=== PATIENT | female | born 1955 | race Caucasian/White ===

== ENCOUNTER 2019-12-12 18:15 | Emergency (ER) | payer OTHER ==
[2019-12-12] MEDS ORDERED: fentaNYL 100 MCG/2 ML SDV ONE ×2 (18:26→19:47)
[2019-12-12] MEDS ORDERED: Midazolam 1 MG/ML 2 ML SDV ONE ×2 (18:26→19:48)
--- NOTE | 2019-12-12 18:58 | EDM.PDOC ---
ED HPI GENERAL MEDICAL PROBLEM - General Chief Complaint: General Stated Complaint: RAPID HEART RATE Time Seen by Provider: 12/12/19 18:40 - History of Present Illness INITIAL COMMENTS - FREE TEXT/NARRATIVE: Patient presents with palpitations tachycardia for 1 hour prior to arrival. Patient presents with A. fib RVR. Patient is diaphoretic pale but alert and orientated x4. Patient is on Xarelto for DVTs. She also takes metoprolol for high blood pressure no other medical problems. Patient denies any recreational drug use. Denies any history of arrhythmia. - Related Data Allergies Allergy/AdvReac Type Severity Reaction Status Date / Time doxycycline Allergy Hives Verified 12/12/19 19:00 lisinopril Allergy Cough Verified 12/12/19 19:00 naproxen sodium [From Aleve] Allergy Rash Verified 12/12/19 19:00 propoxyphene HCl Allergy Hallucinati Verified 12/12/19 19:00 [From Darvon] ons Home Meds: Home Meds DULoxetine [Cymbalta] 60 mg PO DAILY 04/26/15 [History] Omeprazole [Prilosec] 20 mg PO ACBREAKFAST 04/26/15 [History] Diclofenac Sodium [Voltaren] 50 mg PO BIDMEALS 05/02/15 [History] Cyanocobalamin (Vitamin B-12) [Cyanocobalamin Injection] 1,000 mcg IM Q30D 03/04/16 [History] Fluticasone Propionate [Flonase] 1 spray NASBOTH BID 03/04/16 [History] Multivitamin [Multivitamins] 1 cap PO DAILY 03/04/16 [History] Albuterol [Proventil HFA] 1 - 2 puff INH Q4H PRN 03/08/16 [History] Calcium Carb/Magnesium Hydrox [Rolaids Chewable Tablet] 1 each PO QID PRN 03/08/16 [History] Ibuprofen 800 mg PO BID PRN 03/08/16 [History] Rup Rub 1 applic TOP TID PRN 03/08/16 [History] Benzonatate [Tessalon Perles] 200 mg PO BID #30 cap 03/10/16 [Rx] Budesonide [Pulmicort] 0.5 mg IH BID #30 ml 03/10/16 [Rx] Levofloxacin [Levaquin] 500 mg PO Q24H #5 tablet 03/10/16 [Rx] Past Medical History HEENT History: Reports: Impaired Vision Cardiovascular History: Reports: High Cholesterol, Hypertension, Other (See Below) Other Cardiovascular History: dysrythmic disorder Respiratory History: Reports: COPD, Other (See Below) Other Respiratory History: hx of influenza B May 2015; current pneumonitis 03/2016 Gastrointestinal History: Reports: GERD Genitourinary History: Reports: None [employer] WORKERS History: Reports: Musculoskeletal History: Reports: Osteoarthritis Psychiatric History: Reports: Anxiety Endocrine/Metabolic History: Reports: Vitamin D Deficiency Hematologic History: Reports: B12 Deficiency Oncologic (Cancer) History: Reports: Breast - Infectious Disease History Infectious Disease History: Reports: Chicken Pox - Past Surgical History Female Surgical History: Reports: Hysterectomy, Salpingo-Oophorectomy Social & Family History - Family History Cardiac: Reports: Bypass, CAD, Prior Cardiac Arrest Neurological: Reports: CVA Other Neurological Family History: mother had stroke Other Oncologic Family History: sister and brother from cancer - Caffeine Use Caffeine Use: Reports: Coffee, Soda ED ROS GENERAL - Review of Systems Review Of Systems: Comprehensive ROS is negative, except as noted in HPI. Cardiovascular: Reports: Lightheadedness, Palpitations ED EXAM, GENERAL - Physical Exam Exam: See Below Exam Limited By: No Limitations General Appearance: Alert, Mild Distress Throat/Mouth: Normal Inspection, Normal Lips Head: Atraumatic, Normocephalic, Sinus Tenderness Neck: Normal Inspection, Supple, Non-Tender Respiratory/Chest: No Respiratory Distress, Lungs Clear, Normal Breath Sounds Cardiovascular: Tachycardia, Irregularly Irregular Peripheral Pulses: 2+: Radial (L), Radial (R), Posterior Tibial (L), Posterior Tibial (R), Dorsalis Pedis (L), Dorsalis Pedis (R) Back Exam: Normal Inspection, Full Range of Motion Extremities: Normal Inspection, Normal Range of Motion Neurological: Alert, Oriented Psychiatric: Normal Affect Skin Exam: Warm, Dry, Intact #1 Interpretation EKG Date: 12/12/19 Time: 18:52 Rhythm: A-Fib Rate (Beats/Min): 170 #2 Interpretation EKG Date: 12/12/19 Rhythm: NSR [place]: Normal P-Wave: Present QRS: Normal ST-T: Normal QT: Normal (after cardioverison) Course - Vital Signs Last Recorded V/S: Last Vital Signs Temp 97.7 F 12/12/19 18:48 Pulse 94 12/12/19 20:35 Resp 12 12/12/19 20:35 BP 114/76 12/12/19 20:35 Pulse Ox 99 12/12/19 20:35 - Orders/Labs/Meds Orders: Active Orders 24 hr Category Date Time Status Chest 1V Frontal [CR] Stat Exams 12/12/19 Ordered Amiodarone In Dextrose,Iso-Osm [Nexterone in Dextrose Med 12/12/19 20:30 Active 360 MG/200 ML] 360 mg Premix Bag 1 bag IV ASDIRECTED Norepinephrine [Levophed] 4 mg Med 12/12/19 20:30 Active Dextrose 5% in Water 246 ml IV TITRATE Potassium Chloride [KCL 20 MEQ in Water 100 ML] 20 meq Med 12/12/19 21:25 Active Premix Bag 1 bag IV ONETIME Medication Orders Amiodarone HCl/Dextrose 360 mg (/ Premix) 200 mls @ 33.3 mls/hr IV ASDIRECTED CHARLES; Protocol Norepinephrine Bitartrate 4 mg (/ Dextrose/Water) 250 mls @ 7.5 mls/hr IV TITRATE CHARLES; Protocol Potassium Chloride 20 meq/ (Premix) 100 mls @ 50 mls/hr IV ONETIME ONE Stop: 12/12/19 23:24 Last Admin: 12/12/19 21:31 Dose: 50 mls/hr Documented by: SAUNDRA Labs: Laboratory Tests 12/12/19 12/12/19 12/12/19 Range/Units 19:11 19:11 19:11 WBC 3.77 L (5.00-10.00) 10^3/uL RBC 4.33 (3.80-5.50) 10^6/uL Hgb 13.4 (12.0-16.0) g/dL Hct 38.8 (37.0-47.0) % MCV 89.6 (82.0-92.0) fL MCH 30.9 (27.0-31.0) pg MCHC 34.5 (32.0-36.0) g/dL RDW 13.0 (11.5-14.5) % Plt Count 178 (150-400) 10^3/uL MPV 10.8 H (7.4-10.4) fL Immature Gran % (Auto) 0.0 (0.0-5.0) % Neut % (Auto) 46.1 L (50.0-70.0) % Lymph % (Auto) 40.6 H (20.0-40.0) % [place] % (Auto) 12.5 H (2.0-8.0) % Eos % (Auto) 0.3 L (1.0-3.0) % Baso % (Auto) 0.5 (0.0-1.0) % Neut # (Auto) 1.74 L (2.50-7.00) 10^3/uL Lymph # (Auto) 1.53 (1.00-4.00) 10^3/uL [place] # (Auto) 0.47 (0.10-0.80) 10^3/uL Eos # (Auto) 0.01 L (0.10-0.30) 10^3/uL Baso # (Auto) 0.02 (0.00-0.10) 10^3/uL Immature Gran # (Auto) 0.00 (0.00-0.50) 10^3/uL PT 9.9 (9.2-11.2) SEC INR 1.0 (0.9-1.1) APTT 29.4 (22.8-31.4) SEC Sodium 140 (136-145) mmol/L Potassium 2.6 L (3.3-5.3) mmol/L Chloride 106 (98-115) mmol/L Carbon Dioxide 20.0 L (21.0-32.0) mmol/L Anion Gap 16.6 H (5-15) mmol/L BUN 7 (6-25) mg/dL Creatinine 0.79 (0.51-1.17) mg/dL Est Cr Clr Drug Dosing 71.80 mL/min Estimated GFR (MDRD) > 60 mL/min Glucose 112 H (75 - 99) mg/dL Calcium 7.8 L D (8.7-10.3) mg/dL Magnesium (1.8-2.4) mg/dL Total Bilirubin 0.3 (0.2-1.0) mg/dL AST 16 (15-37) U/L ALT 14 (12-78) U/L Alkaline Phosphatase 52 (46-116) IU/L Troponin I < 0.04 (0.00-0.070) ng/mL B-Natriuretic Peptide 8 (0-100) pg/mL Total Protein 5.8 L (6.4-8.2) g/dL Albumin 3.07 (3.00-4.80) g/dL 12/12/19 Range/Units 19:11 WBC (5.00-10.00) 10^3/uL RBC (3.80-5.50) 10^6/uL Hgb (12.0-16.0) g/dL Hct (37.0-47.0) % MCV (82.0-92.0) fL MCH (27.0-31.0) pg MCHC (32.0-36.0) g/dL RDW (11.5-14.5) % Plt Count (150-400) 10^3/uL MPV (7.4-10.4) fL Immature Gran % (Auto) (0.0-5.0) % Neut % (Auto) (50.0-70.0) % Lymph % (Auto) (20.0-40.0) % [place] % (Auto) (2.0-8.0) % Eos % (Auto) (1.0-3.0) % Baso % (Auto) (0.0-1.0) % Neut # (Auto) (2.50-7.00) 10^3/uL Lymph # (Auto) (1.00-4.00) 10^3/uL [place] # (Auto) (0.10-0.80) 10^3/uL Eos # (Auto) (0.10-0.30) 10^3/uL Baso # (Auto) (0.00-0.10) 10^3/uL Immature Gran # (Auto) (0.00-0.50) 10^3/uL PT (9.2-11.2) SEC INR (0.9-1.1) APTT (22.8-31.4) SEC Sodium (136-145) mmol/L Potassium (3.3-5.3) mmol/L Chloride (98-115) mmol/L Carbon Dioxide (21.0-32.0) mmol/L Anion Gap (5-15) mmol/L BUN (6-25) mg/dL Creatinine (0.51-1.17) mg/dL Est Cr Clr Drug Dosing mL/min Estimated GFR (MDRD) mL/min Glucose (75 - 99) mg/dL Calcium (8.7-10.3) mg/dL Magnesium 1.5 L (1.8-2.4) mg/dL Total Bilirubin (0.2-1.0) mg/dL AST (15-37) U/L ALT (12-78) U/L Alkaline Phosphatase (46-116) IU/L Troponin I (0.00-0.070) ng/mL B-Natriuretic Peptide (0-100) pg/mL Total Protein (6.4-8.2) g/dL Albumin (3.00-4.80) g/dL Meds: Medications Generic Name Dose Route Start Last Admin Trade Name Freq PRN Reason Stop Dose Admin Amiodarone HCl/Dextrose 360 mg 200 mls @ 33.3 mls/hr 12/12/19 20:30 / Premix IV ASDIRECTED CHARLES Protocol Norepinephrine Bitartrate 4 mg 250 mls @ 7.5 mls/hr 12/12/19 20:30 / Dextrose/Water IV TITRATE CHARLES Protocol 2 MCG/MIN Potassium Chloride 20 meq/ 100 mls @ 50 mls/hr 12/12/19 21:25 12/12/19 21:31 Premix IV 12/12/19 23:24 50 mls/hr ONETIME ONE Administration Discontinued Medications Generic Name Dose Route Start Last Admin Trade Name Freq PRN Reason Stop Dose Admin Amiodarone HCl/Dextrose 150 mg 12/12/19 20:19 Nexterone In Dextrose 150 Mg/100 Ml IV 12/12/19 20:20 .BOLUS ONE Protocol Fentanyl Confirm 12/12/19 18:26 12/12/19 20:18 Sublimaze Administered 12/12/19 18:27 Not Given Dose 100 mcg .ROUTE .STK-MED ONE Fentanyl Confirm 12/12/19 19:47 12/12/19 20:18 Sublimaze Administered 12/12/19 19:48 Not Given Dose 100 mcg .ROUTE .STK-MED ONE Fentanyl 100 mcg 12/12/19 20:22 Sublimaze IVPUSH 12/12/19 20:23 ONETIME ONE Fentanyl 100 mcg 12/12/19 20:22 Sublimaze IVPUSH 12/12/19 20:23 ONETIME ONE Sodium Chloride Confirm 12/12/19 19:34 12/12/19 20:18 Normal Saline Administered 12/12/19 19:35 Not Given Dose 1,000 mls @ as directed .ROUTE .STK-MED ONE Sodium Chloride 1,000 mls @ 999 mls/hr 12/12/19 20:26 Normal Saline IV 12/12/19 21:26 .BOLUS ONE Sodium Chloride 1,000 mls @ 999 mls/hr 12/12/19 20:27 Normal Saline IV 12/12/19 21:27 .BOLUS ONE Sodium Chloride 1,000 mls @ 999 mls/hr 12/12/19 20:28 Normal Saline IV 12/12/19 21:28 .BOLUS ONE Magnesium Sulfate 2 gm/ Premix 50 mls @ 200 mls/hr 12/12/19 21:45 IV 12/12/19 21:59 ONETIME ONE Midazolam HCl Confirm 12/12/19 18:26 12/12/19 20:18 Versed 1 Mg/Ml Administered 12/12/19 18:27 Not Given Dose 2 mg .ROUTE .STK-MED ONE Midazolam HCl Confirm 12/12/19 19:48 12/12/19 20:19 Versed 1 Mg/Ml Administered 12/12/19 19:49 Not Given Dose 2 mg .ROUTE .STK-MED ONE Midazolam HCl 2 mg 12/12/19 20:21 Versed 1 Mg/Ml IVPUSH 12/12/19 20:22 ONETIME ONE - Re-Assessments/Exams Free Text/Narrative Re-Assessment/Exam: 12/12/19 18:55 I did consult Roxana through the telemedicine. We give her 50 mics of fentanyl to prepare for synchronized cardioversion due to hypotension systolic 80s patient was given a liter fluid bolus patient was unstable. Patient was cardioverted with 200 J patient was back in A. fib RVR. After liter fluid her blood pressure came up to 106/74 did consult cardiology from [facility] amiodarone drip started 150 mg the first 10 minutes 1 mg/h for the first 6 hours. Heart rate remained 130s A. fib irregular cardial version was done again as the patient's blood pressure dropped systolic 80s she was given little bit of Levophed per protocol to help with blood pressure along with some fentanyl 50 mcq and 2 mg of versed for some pain medication she was cardioverted synchronized 300 J heart rate was able to convert to normal sinus rhythm. Patient stable blood pressure 114/76 pulse 93 normal rhythm. I was able to consult hospitalist to admit the patient patient transferred by EMS. he accepted her care. Magnesium and CHEM PANEL also pending. 12/12/19 20:35 levophed is d/c after cardioversion. 12/12/19 20:39 Hyperkalemia noted potassium IV ordered. EMS here to transfer patient. mg level just came back on EMS were here 1.5, therefore 2g magnesium iv infusion ordered as well to start enroute. full ppe was used, pending covid 19 test, as she has been feeling ill for the past week. 12/12/19 21:42 12/12/19 22:18 Departure - Departure Time of Disposition: 20:37 Disposition: DC/Tfer to Acute Hospital 02 Condition: Serious Clinical Impression: Atrial fibrillation with rapid ventricular response, Hypokalemia - Discharge Information *PRESCRIPTION DRUG MONITORING PROGRAM REVIEWED*: No *COPY OF PRESCRIPTION DRUG MONITORING REPORT IN PATIENT FRANCY: No Referrals: Cass Gordillo PA-C [Primary Care Provider] - Forms: ED Department Discharge Sepsis Event Note (ED) - Focused Exam Vital Signs: Vital Signs Temp Pulse Resp BP Pulse Ox 12/12/19 20:35 94 12 114/76 99 12/12/19 20:30 85 18 100/64 97 12/12/19 20:25 85 20 106/58 L 97 12/12/19 20:10 85 15 102/70 100 12/12/19 20:00 133 H 16 109/64 100 12/12/19 19:45 159 H 10 L 94/72 100 12/12/19 19:30 130 H 13 83/58 L 99 12/12/19 19:15 153 H 20 101/43 L 99 12/12/19 19:00 123 H 17 98/73 100 12/12/19 18:48 97.7 F 128 H 20 65/47 L 98 12/12/19 18:45 130 H 15 105/57 L 94 L 12/12/19 18:43 120 H 15 104/60 100 12/12/19 18:37 140 H 11 L 99/70 99 12/12/19 18:33 122 H 18 90/64 99 12/12/19 18:30 173 H 21 H 89/68 L 99 12/12/19 18:21 171 H 20 83/64 L 99 - My Orders Last 24 Hours: My Active Orders 12/12/19 Chest 1V Frontal [CR] Stat 12/12/19 20:30 Amiodarone In Dextrose,Iso-Osm [Nexterone in Dextrose 360 MG/200 ML] 360 mg Premix Bag 1 bag IV ASDIRECTED Norepinephrine [Levophed] 4 mg Dextrose 5% in Water 246 ml IV TITRATE 12/12/19 21:25 Potassium Chloride [KCL 20 MEQ in Water 100 ML] 20 meq Premix Bag 1 bag IV ONETIME - Assessment/Plan Last 24 Hours: My Active Orders 12/12/19 Chest 1V Frontal [CR] Stat 12/12/19 20:30 Amiodarone In Dextrose,Iso-Osm [Nexterone in Dextrose 360 MG/200 ML] 360 mg Premix Bag 1 bag IV ASDIRECTED Norepinephrine [Levophed] 4 mg Dextrose 5% in Water 246 ml IV TITRATE 12/12/19 21:25 Potassium Chloride [KCL 20 MEQ in Water 100 ML] 20 meq Premix Bag 1 bag IV ONETIME
[2019-12-12] MEDS ORDERED: Sodium Chloride 0.9% 1,000 ML ONE (19:34)
[2019-12-12 19:37] LABS: PTT,PARTIAL THROMBOPLSTIN TIME 29.4 SEC (22.8-31.4)
[2019-12-12] MEDS ORDERED: Amiodarone/Dextrose,Iso-Osmotic 150 MG/100 ML Premix Bag IV ONE (20:19)
[2019-12-12] MEDS ORDERED: Midazolam 1 MG/ML 2 ML SDV IVPUSH ONE (20:21)
[2019-12-12] MEDS ORDERED: fentaNYL 100 MCG/2 ML SDV IVPUSH ONE ×2 (20:22)
[2019-12-12] MEDS ORDERED: Sodium Chloride 0.9% 1,000 ML IV ONE ×3 (20:26→20:28)
[2019-12-12] MEDS ORDERED: Norepinephrine 4 MG in Dextrose 5% in Water 246 ML IV SCH ×2 (20:30)
[2019-12-12] MEDS ORDERED: Amiodarone In Dextrose,Iso-Osm 360 MG in Premix Bag 1 BAG IV SCH ×2 (20:30)
[2019-12-12 20:34] LABS: CHLORIDE,CL 106 mmol/L (98-115); SODIUM,NA 140 mmol/L (136-145)
[2019-12-12] MEDS ORDERED: Potassium Chloride 20 MEQ in Premix Bag 1 BAG IV ONE (21:25)
[2019-12-12 21:27] LABS: ANION GAP 16.6 mmol/L (5-15)
[2019-12-12] MEDS ORDERED: Magnesium Sulfate/Water 2 GM in Premix Bag 1 BAG IV ONE (21:45)
[2019-12-13 00:12] VITALS: BP 97/60; PULSE 97
== END 2019-12-12 22:30 ==
LOC: KA.ED 18:15
DX: I48.91 Unspecified atrial fibrillation (principal); E87.6 Hypokalemia; I10 Essential (primary) hypertension; J44.9 Chronic obstructive pulmonary disease, unspecified; K21.9 Gastro-esophageal reflux disease without esophagitis; F41.9 Anxiety disorder, unspecified; Z88.1 Allergy status to other antibiotic agents; Z88.8 Allergy status to other drugs, medicaments and biological substances; Z88.6 Allergy status to analgesic agent; Z79.899 Other long term (current) drug therapy
CPT/HCPCS: 36415; 71045; 80053; 83735; 83880; 84484; 85025; 85610; 85730; 92960; 93005; 96365; 96366; 96368; 96375; 99284; 99285-25; J0282; J2250; J3010; J3475; J3480; J7030; J7060

== ENCOUNTER 2024-04-05 00:16 | Emergency (ER) | payer MEDICARE, OTHER ==
[2024-04-05] MEDS ORDERED: Naloxone 0.4 MG/ML SDV IVPUSH PRN (00:40)
[2024-04-05] MEDS: Ondansetron 4 MG/2 ML SDV IVPUSH ONE (00:45)
[2024-04-05 00:46] LABS: BASOPHILS ABSOLUTE AUTO 0.02 10^3/uL (0.00-0.10); BASOPHILS PERCENT AUTO 0.1 % (0.0-1.0); HEMATOCRIT 42.3 % (37.0-47.0); HEMOGLOBIN 14.1 g/dL (12.0-16.0); IMMATURE GRAN ABSOLUTE AUTO 0.03 10^3/uL (0.00-0.04); IMMATURE GRAN PERCENT AUTO 0.2 % (0.0-0.4); LYMPHOCYTES ABSOLUTE AUTO 1.89 10^3/uL (1.00-4.00); LYMPHOCYTES PERCENT AUTO 13.4 % (20.0-40.0); MEAN CORPUSCULAR HEMOGLOBIN 31.5 pg (27.0-31.0); MEAN CORPUSCULAR HGB CONC 33.3 g/dL (32.0-36.0); MEAN CORPUSCULAR VOLUME 94.6 fL (82.0-92.0); MEAN PLATELET VOLUME 10.2 fL (7.4-10.4); MONOCYTES ABSOLUTE AUTO 0.35 10^3/uL (0.10-0.80); MONOCYTES PERCENT AUTO 2.5 % (2.0-8.0); NEUTROPHILS ABSOLUTE AUTO 11.85 10^3/uL (2.50-7.00); NEUTROPHILS PERCENT AUTO 83.8 % (50.0-70.0); PLATELET COUNT,PLT 354 10^3/uL (150-400); RED BLOOD CELL COUNT 4.47 10^6/uL (3.80-5.50); WHITE BLOOD CELL COUNT,WBC 14.14 10^3/uL (5.00-10.00)
[2024-04-05] MEDS: HYDROmorphone 1 MG/ML Syringe IVPUSH ONE (00:48)
[2024-04-05 00:59] LABS: ALBUMIN 3.55 g/dL (3.40-5.00); ANION GAP 18.8 mmol/L (5-15); BILIRUBIN TOTAL 0.4 mg/dL (0.2-1.0); CALCIUM 9.3 mg/dL (8.7-10.3); CARBON DIOXIDE,CO2 25.8 mmol/L (21.0-32.0); CREATININE 1.31 mg/dL (0.51-1.17); EST CRCL DRUG DOSING (CG) 39.55 mL/min; POTASSIUM,K 3.6 mmol/L (3.5-5.1); PROTEIN TOTAL,TP 6.7 g/dL (6.4-8.2)
[2024-04-05] MEDS: Sodium Chloride 0.9% 1,000 ML ONE (01:09)
[2024-04-05] MEDS: Sodium Chloride 0.9% 1,000 ML IV SCH (01:09)
[2024-04-05] MEDS: Linezolid 600 MG/300 ML 600 MG in Premix Bag 1 BAG IV SCH (01:48)
[2024-04-05] MEDS ORDERED: Sodium Chloride 0.9% 1,000 ML IV SCH (02:15)
[2024-04-05 03:03] VITALS: BP 116/70; PULSE 86
== END 2024-04-05 02:35 ==
LOC: KA.ED 00:16
DX: A41.9 Sepsis, unspecified organism (principal); N99.528 Other complication of incontinent external stoma of urinary tract; M54.9 Dorsalgia, unspecified; I48.91 Unspecified atrial fibrillation; I10 Essential (primary) hypertension; E78.00 Pure hypercholesterolemia, unspecified; J44.9 Chronic obstructive pulmonary disease, unspecified; K21.9 Gastro-esophageal reflux disease without esophagitis; E66.9 Obesity, unspecified; F17.200 Nicotine dependence, unspecified, uncomplicated; Z68.36 Body mass index [BMI] 36.0-36.9, adult; Z90.49 Acquired absence of other specified parts of digestive tract; Z90.710 Acquired absence of both cervix and uterus; Z88.1 Allergy status to other antibiotic agents; Z88.8 Allergy status to other drugs, medicaments and biological substances; Z91.041 Radiographic dye allergy status; Z79.51 Long term (current) use of inhaled steroids; Z79.01 Long term (current) use of anticoagulants; Z79.899 Other long term (current) drug therapy
CPT/HCPCS: 36415; 80053; 83605; 84484; 85025; 87040; 96365; 96375; 99285-25; J1171; J2020; J2405; J7030